=== PATIENT | male | born 1980 | race Hispanic/Latino ===

== ENCOUNTER 2019-02-27 20:30 | Emergency (ER) | payer SELFPAY ==
[2019-02-27] MEDS ORDERED: traMADol HCl 50 MG TAB ONE (21:20)
[2019-02-27] MEDS ORDERED: Ketorolac Tromethamine 30 MG/ML VIAL ONE ×2 (21:20→21:23)
== END 2019-02-27 21:55 | disposition home or self-care (01) ==
LOC: ERS 20:30
DX: M10.9 Gout, unspecified (principal); F41.9 Anxiety disorder, unspecified
CPT/HCPCS: 96372; J1885